=== PATIENT | male | born 1975 | race Caucasian/White ===

== ENCOUNTER 2017-01-30 11:53 | Day surgery (SDC) | payer BC ==
[~2017-01-30] VITALS: Ht 177.8 cm; Wt 85.0 kg
[~2017-01-30 11:53] MED LIST: ALFENTANIL 1,000 MCG/2 ML AMP IV ONE; LACTATED RINGERS 1,000 ML IV SCH; PROPOFOL 20 ML IV ONE; SODIUM CHLORIDE FLUSH 3 ML SYR IV SCH; SUCCINYLCHOLINE 20 MG/ML 10 ML VIAL ONE
--- OUTSIDE RECORDS SUMMARY | 2017-01-30 11:57 | XMS REPORT | Continuity of Care Document ---
Author Author [facility] Organization [facility] Address Unknown Phone Unavailable Allergies Medications Problems Procedures Results Encounters ACCT No. Visit Date/Time Discharge Status Pt. Type Provider Facility Loc./Unit Complaint [id number] 01/22/2017 17:41:01 01/22/2017 23 :59:59 CLS Outpatient Dax Alvarez [id number] 12/21/2016 11:57:09 12/21/2016 23: 59:59 CLS Outpatient Dax Alvarez [id number] 12/21/2016 09:51:06 12/21/2016 23: 59:59 CLS Outpatient Dax Alvarez [id number] 11/30/2016 08:37:15 11/30/2016 23: 59:59 CLS Outpatient Dax Alvarez [id number] 11/29/2016 15:00:20 11/29/2016 23: 59:59 CLS Outpatient Dax Alvarez [id number] 08/13/2015 17:05:06 08/13/2015 23: 59:59 CLS Outpatient Flory Wheatley [id number] 07/23/2015 09:58:46 07/23/2015 23: 59:59 CLS Outpatient Dax Alvarez
[2017-01-30] MEDS ORDERED: MUPIROCIN 2% OINT 22 GM (BACTROBAN) TUBE TOP ONE (11:58)
[2017-01-30] MEDS ORDERED: OXYMETAZOLINE 0.05% NASAL SPRAY (AFRIN) 15 ML BTL ONE (11:58)
[2017-01-30] MEDS ORDERED: BACITRACIN/POLYMYXIN OINTMENT 28.35 GM TUBE TOP ONE (11:59)
[2017-01-30] MEDS ORDERED: LIDOCAINE/EPINEPHRINE 1% 1:100,000 (XYLOCAINE) 30 ML VIAL INJ ONE (11:59)
[2017-01-30 12:03] VITALS: BP 154/100
[2017-01-30] MEDS ORDERED: MIDAZOLAM 2 MG/2 ML (VERSED) VIAL IV ONE (12:05)
[2017-01-30] MEDS ORDERED: MULT-954 PO (12:18)
[2017-01-30] MEDS ORDERED: [UNRECOGNIZED DRUG - CODE] PO (12:18)
[2017-01-30] MEDS: OXYMETAZOLINE 0.05% NASAL SPRAY (AFRIN) 15 ML BTL SCH ×2 (12:33→12:37)
[2017-01-30] MEDS ORDERED: MIDAZOLAM 2 MG/2 ML (VERSED) VIAL ONE (13:43)
[2017-01-30] MEDS ORDERED: TRIAMCINOLONE ACET 40 MG/ML (KENALOG-40) 1 ML VIAL ONE (14:35)
[2017-01-30 15:18] VITALS: BP 113/66
[2017-01-30 15:34] VITALS: BP 124/51
[2017-01-30] MEDS ORDERED: ONDANSETRON 2 MG/ML (Z0FRAN) 2 ML VIAL IV PRN (15:40)
[2017-01-30] MEDS ORDERED: ACETAMINOPHEN/CODEINE 300MG/30 MG (TYLENOL #3) TABLET PO PRN (15:40)
[2017-01-30 15:50] VITALS: BP 132/76
[2017-01-30 16:04] VITALS: BP 135/91
[2017-01-30] MEDS ORDERED: HYPERTONIC SALINE IRRIGATION 1000 ML BTL IR SCH (21:00)
--- NOTE | 2017-02-01 10:29 | OPERATIVE REPORT ---
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 Left partial inferior turbinate reduction. 2. Right partial inferior turbinate reduction. SURGEON: Ricky Ramos M.D. ANESTHESIA: General endotracheal INDICATIONS: This is a 41-year-old male has a history of nasal airway obstruction with turbinate hypertrophy. OPERATIVE FINDINGS: Enlarged inferior turbinate, both left and right sides. OPERATIVE NOTE: Following informed consent, the patient was taken to the Operating Room and placed in a supine position. Satisfactory general endotracheal anesthesia was obtained. The patient was prepped for surgery with Afrin nasal spray and 1% lidocaine with epinephrine. LEFT PARTIAL INFERIOR TURBINATE REDUCTION: The left inferior turbinate was shaved along its inferior and lateral edge using the suction microdebrider removing both soft tissue and bone, decreasing the size of the turbinate by 20%. It was then cauterized with suction electrocautery for hemostasis and then lightly lateralized with the Boies elevator. Afrin packs were then placed in this side of the nose. RIGHT PARTIAL INFERIOR TURBINATE REDUCTION: The right inferior turbinate was shaved along its inferior and lateral edge using the suction microdebrider removing both soft tissue and bone, decreasing the size of the turbinate by 20%. It was then cauterized with suction electrocautery for hemostasis and then lightly lateralized with the Boies elevator. Afrin packs were then placed in this side of the nose. Both of the inferior turbinates were treated with coblation wand along the upper medial aspect of the turbinate to decrease the thickened tissue in this region. Next, the middle turbinates were sutured to the midline using a [id number] 4-0 Vicryl suture in a mattress fashion. This opened the middle meatus widely on each side. Both sides of the nose were again irrigated with saline and suctioned until clear. Afrin packs were placed bilaterally. The patient was awakened and taken to the Recovery Room in good condition.
== END 2017-01-30 16:26 | disposition home or self-care (01) ==
LOC: ASC 11:53
PROVIDERS: ATTEND Otolaryngology
DX: J34.3 Hypertrophy of nasal turbinates (principal); J34.89 Other specified disorders of nose and nasal sinuses; F41.9 Anxiety disorder, unspecified
CPT/HCPCS: 30802; J0330; J2250; J3301; J7120